=== PATIENT | male | born 1990 | race Caucasian/White ===

== ENCOUNTER 2017-04-22 13:24 | Emergency (ER) | payer BC ==
[~2017-04-22] VITALS: Ht 180.3 cm; Wt 84.1 kg
[2017-04-22 13:47] VITALS: BP 157/87; PULSE 82; TEMP 99.4
[2017-04-22] MEDS ORDERED: INDERAL 10MG10 MG PO (14:20)
[2017-04-22] MEDS ORDERED: ZOLOFT 100MG100 MG PO (14:20)
[2017-04-22] MEDS ORDERED: FISH OIL 500 M1 EAC1 PO (14:21)
[2017-04-22] MEDS ORDERED: CATAPRES 0.1MG0.1 MG PO (14:21)
== END 2017-04-22 15:39 | disposition home or self-care (01) ==
LOC: COL.ER 13:24
DX: S61.210A Laceration without foreign body of right index finger without damage to nail, initial encounter (principal); F32.9 Major depressive disorder, single episode, unspecified; F42.9 Obsessive-compulsive disorder, unspecified; W26.0XXA Contact with knife, initial encounter